=== PATIENT | male | born 1950 | race Hispanic/Latino ===

== ENCOUNTER → 2018-11-13 | Outpatient (CLI) | payer OTHER, MEDICARE ==
[~2018-11-13] VITALS: Ht 193 cm; Wt 107.5 kg
[~2018-11-13] MED LIST: ASPI-555 PO; REGADENOSON 0.4 MG/5 ML PF SYG IVP SCH; TERA10CA4 PO
== END | disposition home or self-care (01) ==
LOC: SHCH 08:14
PROVIDERS: ATTEND Internal Medicine Cardiovascular Disease
DX: I21.19 ST elevation (STEMI) myocardial infarction involving other coronary artery of inferior wall (principal); I25.709 Atherosclerosis of coronary artery bypass graft(s), unspecified, with unspecified angina pectoris
CPT/HCPCS: 78452; 93017; 96374; A9500 ×2; J2785

== ENCOUNTER 2019-06-14 15:32 | Emergency (ER) | payer OTHER, MEDICARE ==
[~2019-06-14] VITALS: Ht 193 cm; Wt 108.9 kg
[~2019-06-14 15:32] MED LIST changes: -REGADENOSON 0.4 MG/5 ML PF SYG IVP SCH
[2019-06-14] MEDS ORDERED: DILTIAZEM HCL 5 MG/ML 10 ML VIAL IV ONE (15:58)
[2019-06-14] MEDS ORDERED: DILTIAZEM 125MG+100 ML NS 125 ML IV SCH (16:15)
[2019-06-14 16:48] LABS: BASOPHILS % (AUTO) 0.5 % (0.0-5.0); EOSINOPHILS % (AUTO) 2.7 % (0.0-8.0); HEMATOCRIT 36.5 % (42-54); LYMPHOCYTES % (AUTO) 21.9 % (21.0-51.0); MEAN CORPUSCULAR HGB CONC 33.7 g/dL (32.0-36.0); MONOCYTES % (AUTO) 9.5 % (3.0-13.0); NEUTROPHILS % (AUTO) 65.1 % (40.0-77.0); PLATELET COUNT (AUTO) 211 K/uL (130-400); RED CELL DISTRIBUTION WIDTH 12.8 % (11.0-15.5); WHITE BLOOD COUNT (AUTO) 6.6 K/uL (4.8-10.8)
[2019-06-14 16:59] LABS: CREATININE 1.3 mg/dL (0.5-1.5); POTASSIUM 4.3 mmol/L (3.5-5.1)
[2019-06-14 17:02] LABS: INR 1.21 (0.85-1.15); PARTIAL THROMBOPLASTIN TIME 57.1 SEC (26.3-35.5); PROTHROMBIN TIME 12.6 SEC (9.6-11.6)
[2019-06-14 17:04] LABS: ALBUMIN 3.9 g/dL (3.5-5.0); BILIRUBIN,TOTAL 0.4 mg/dL (0.2-1.0); TOTAL PROTEIN, SERUM 8.3 g/dL (6.0-8.3)
== END 2019-06-14 19:37 | disposition home or self-care (01) ==
LOC: EDH 15:32
DX: I48.0 Paroxysmal atrial fibrillation (principal); I10 Essential (primary) hypertension; I25.10 Atherosclerotic heart disease of native coronary artery without angina pectoris; Z88.2 Allergy status to sulfonamides
CPT/HCPCS: 36415; 80053; 84484 ×2; 85025; 85610; 85730; 93005 ×2; 96374; 99291; J3490 ×2

== ENCOUNTER 2021-08-15 11:24 | Observation (INO) | payer MEDICARE ==
[~2021-08-15] VITALS: Ht 193 cm; Wt 103.0 kg
[~2021-08-15 11:24] MED LIST changes: -ASPI-555 PO; +ASPI-556 PO
[2021-08-15] MEDS ORDERED: NITROGLYCERIN 0.4 MG SL TAB SL ONE (11:47)
[2021-08-15] MEDS ORDERED: ASPIRIN 81MG CHEW TAB ONE (11:47)
[2021-08-15 11:53] LABS: BASOPHILS % (AUTO) 0.5 % (0.0-5.0); EOSINOPHILS % (AUTO) 3.4 % (0.0-8.0); HEMATOCRIT 30.1 % (42-54); LYMPHOCYTES % (AUTO) 19.6 % (21.0-51.0); MEAN CORPUSCULAR HEMOGLOBIN 30.1 pg (27.0-33.0); MEAN CORPUSCULAR HGB CONC 33.6 g/dL (32.0-36.0); MEAN CORPUSCULAR VOLUME 89.9 fL (79-99); MONOCYTES % (AUTO) 10.2 % (3.0-13.0); NEUTROPHILS % (AUTO) 65.9 % (40.0-77.0); PLATELET COUNT (AUTO) 159 K/uL (130-400); RED BLOOD CELL COUNT(AUTO) 3.35 MIL/uL (4.50-6.20); RED CELL DISTRIBUTION WIDTH 13.3 % (11.0-15.5); WHITE BLOOD COUNT (AUTO) 5.6 K/uL (4.8-10.8)
[2021-08-15] MEDS ORDERED: NITROGLYCERIN 0.4 MG SL TAB SL PRN (12:00)
[2021-08-15 12:02] LABS: CREATININE 1.4 mg/dL (0.5-1.5); POTASSIUM 4.2 mmol/L (3.5-5.1)
[2021-08-15 12:07] LABS: BILIRUBIN,TOTAL 0.7 mg/dL (0.2-1.0)
[2021-08-15 12:11] LABS: B-TYPE NATRIURETIC PEPTIDE 497 pg/mL (0-100)
[2021-08-15] MEDS ORDERED: IOHEXOL 350 MG/ML 100ML INFUS..BTL IV ONE (13:47)
[2021-08-15] MEDS ORDERED: FUROSEMIDE 40MG VIAL IV SCH (14:00)
[2021-08-15] MEDS ORDERED: LACTULOSE 20 GM/30 ML UDCUP PO PRN (15:00)
[2021-08-15] MEDS ORDERED: ONDANSETRON 4MG INJ IVP PRN (15:00)
[2021-08-15] MEDS ORDERED: NITROGLYCERIN PATCH 0.2 MG/HR TD PRN (15:00)
[2021-08-15] MEDS ORDERED: HYDRALAZINE 20MG/ML VIAL IV PRN (15:00)
[2021-08-15] MEDS ORDERED: ACETAMINOPHEN 325 MG TAB PO PRN (15:00)
[2021-08-15] MEDS: HYDRALAZINE 25MG TABLET PO SCH ×2 (15:31→20:45)
[2021-08-15] MEDS: INSULIN HUMULIN R 100 UNIT/ML 3ML SQ SCH ×2 (16:30→21:00)
[2021-08-15] MEDS: IPRATROPIUM/ALBUTEROL SULFATE 3 ML SOLUTION IH SCH ×2 (18:14→23:02)
[2021-08-15 19:59] VITALS: BP 127/89
[2021-08-15] MEDS: METOPROLOL TARTRATE 25 MG TAB PO SCH (20:44)
[2021-08-15] MEDS: SIMVASTATIN 20 MG TABLET PO SCH (20:44)
[2021-08-15 23:08] VITALS: BP 165/92
[2021-08-16] MEDS: IPRATROPIUM/ALBUTEROL SULFATE 3 ML SOLUTION IH SCH ×6 (02:47→22:32)
[2021-08-16 03:16] VITALS: BP 176/87
[2021-08-16 03:17] LABS: BASOPHILS % (AUTO) 0.7 % (0.0-5.0); EOSINOPHILS % (AUTO) 4.4 % (0.0-8.0); HEMATOCRIT 29.7 % (42-54); LYMPHOCYTES % (AUTO) 21.1 % (21.0-51.0); MEAN CORPUSCULAR HEMOGLOBIN 29.7 pg (27.0-33.0); NEUTROPHILS % (AUTO) 63.6 % (40.0-77.0); PLATELET COUNT (AUTO) 162 K/uL (130-400); RED CELL DISTRIBUTION WIDTH 13.3 % (11.0-15.5); WHITE BLOOD COUNT (AUTO) 5.9 K/uL (4.8-10.8)
[2021-08-16 03:39] LABS: CREATININE 1.3 mg/dL (0.5-1.5); MAGNESIUM 2.1 mg/dL (1.80-2.40); PHOSPHORUS 4.5 mg/dL (2.5-4.9); POTASSIUM 3.9 mmol/L (3.5-5.1); THYROID STIMULATING HORMONE 1.05 uIU/mL (0.36-3.74)
[2021-08-16 03:50] LABS: B-TYPE NATRIURETIC PEPTIDE 269 pg/mL (0-100)
[2021-08-16] MEDS ORDERED: TERA10CA4 PO (06:49)
[2021-08-16] MEDS ORDERED: ROSU20TA31 PO (06:49)
[2021-08-16] MEDS ORDERED: METO-409 PO (06:49)
[2021-08-16] MEDS ORDERED: APIX5TAB PO (06:49)
[2021-08-16] MEDS: INSULIN HUMULIN R 100 UNIT/ML 3ML SQ SCH ×3 (06:52→21:00)
[2021-08-16 08:00] VITALS: BP 160/84
[2021-08-16] MEDS ORDERED: ASPIRIN 81MG CHEW TAB PO SCH (09:00)
[2021-08-16] MEDS: PANTOPRAZOLE 40 MG TAB DR PO SCH (09:33)
[2021-08-16] MEDS: HYDRALAZINE 25MG TABLET PO SCH ×3 (09:33→20:09)
[2021-08-16] MEDS: ASPIRIN 81MG CHEW TAB PO SCH (09:34)
[2021-08-16] MEDS: METOPROLOL TARTRATE 25 MG TAB PO SCH ×2 (09:34→20:09)
[2021-08-16] MEDS: ENOXAPARIN SODIUM 30 MG/0.3 ML SQ SCH (09:35)
[2021-08-16] MEDS: NITROGLYCERIN 1GM OINT 1 INCH/1GM TD SCH (09:39)
[2021-08-16] MEDS: AMLODIPINE 5 MG TAB PO SCH (09:39)
[2021-08-16 12:00] VITALS: BP 140/61
[2021-08-16 17:50] VITALS: BP 146/72
[2021-08-16 19:00] VITALS: BP 187/86
[2021-08-16] MEDS: SIMVASTATIN 20 MG TABLET PO SCH (20:09)
[2021-08-16] MEDS: LABETALOL 20MG SYG IV PRN (20:10)
[2021-08-17] VITALS: BP 185/83
[2021-08-17] MEDS: LABETALOL 20MG SYG IV PRN (00:04)
[2021-08-17] MEDS: NITROGLYCERIN 1GM OINT 1 INCH/1GM TD SCH ×3 (00:05→13:05)
[2021-08-17] MEDS: IPRATROPIUM/ALBUTEROL SULFATE 3 ML SOLUTION IH SCH ×2 (01:38→06:31)
[2021-08-17 04:00] VITALS: BP 149/69
[2021-08-17 04:56] LABS: BASOPHILS % (AUTO) 0.5 % (0.0-5.0); EOSINOPHILS % (AUTO) 5.6 % (0.0-8.0); HEMATOCRIT 27.8 % (42-54); MEAN CORPUSCULAR HEMOGLOBIN 29.3 pg (27.0-33.0); MEAN CORPUSCULAR HGB CONC 32.7 g/dL (32.0-36.0); MEAN CORPUSCULAR VOLUME 89.4 fL (79-99); MONOCYTES % (AUTO) 13.2 % (3.0-13.0); NEUTROPHILS % (AUTO) 60.4 % (40.0-77.0); PLATELET COUNT (AUTO) 158 K/uL (130-400); RED BLOOD CELL COUNT(AUTO) 3.11 MIL/uL (4.50-6.20); RED CELL DISTRIBUTION WIDTH 13.6 % (11.0-15.5); WHITE BLOOD COUNT (AUTO) 6.1 K/uL (4.8-10.8)
[2021-08-17 05:10] LABS: ALBUMIN 3.6 g/dL (3.5-5.0); BILIRUBIN,TOTAL 0.6 mg/dL (0.2-1.0); CREATININE 1.4 mg/dL (0.5-1.5); POTASSIUM 3.6 mmol/L (3.5-5.1); TOTAL PROTEIN, SERUM 7.2 g/dL (6.0-8.3)
[2021-08-17] MEDS: INSULIN HUMULIN R 100 UNIT/ML 3ML SQ SCH ×4 (06:42→20:29)
[2021-08-17 07:30] VITALS: BP 178/83
[2021-08-17] MEDS: HYDRALAZINE 25MG TABLET PO SCH ×3 (09:00→21:04)
[2021-08-17] MEDS: METOPROLOL SUCCINATE 50 MG TAB.SR.24H PO SCH (09:00)
[2021-08-17] MEDS: PANTOPRAZOLE 40 MG TAB DR PO SCH ×2 (09:00→13:03)
[2021-08-17] MEDS: ASPIRIN 81MG CHEW TAB PO SCH ×2 (09:00→13:03)
[2021-08-17] MEDS: AMLODIPINE 5 MG TAB PO SCH ×2 (09:00→13:02)
[2021-08-17] MEDS: ENOXAPARIN SODIUM 30 MG/0.3 ML SQ SCH (09:00)
[2021-08-17] MEDS ORDERED: IPRATROPIUM/ALBUTEROL SULFATE 3 ML SOLUTION IH PRN (10:30)
[2021-08-17 11:00] VITALS: BP 163/81
[2021-08-17] MEDS ORDERED: REGADENOSON 0.4 MG/5 ML PF SYG IVP SCH (11:30)
[2021-08-17 16:00] VITALS: BP 169/77
[2021-08-17 20:00] VITALS: BP 168/82
[2021-08-17] MEDS ORDERED: TERAZOSIN 5MG CAP PO SCH (21:00)
[2021-08-17] MEDS: SIMVASTATIN 20 MG TABLET PO SCH (21:04)
[2021-08-17] MEDS ORDERED: CLONIDINE HCL 0.2 MG TABLET PO ONE ×2 (23:24→23:30)
[2021-08-18] VITALS: BP 171/81
[2021-08-18] MEDS: NITROGLYCERIN 1GM OINT 1 INCH/1GM TD SCH (01:48)
[2021-08-18 04:00] VITALS: BP 132/68
[2021-08-18 05:10] LABS: BASOPHILS % (AUTO) 0.7 % (0.0-5.0); EOSINOPHILS % (AUTO) 6.5 % (0.0-8.0); HEMATOCRIT 28.8 % (42-54); LYMPHOCYTES % (AUTO) 22.6 % (21.0-51.0); MEAN CORPUSCULAR HEMOGLOBIN 29.6 pg (27.0-33.0); MEAN CORPUSCULAR HGB CONC 32.6 g/dL (32.0-36.0); MEAN CORPUSCULAR VOLUME 90.6 fL (79-99); MONOCYTES % (AUTO) 13.1 % (3.0-13.0); NEUTROPHILS % (AUTO) 56.7 % (40.0-77.0); PLATELET COUNT (AUTO) 160 K/uL (130-400); RED BLOOD CELL COUNT(AUTO) 3.18 MIL/uL (4.50-6.20); RED CELL DISTRIBUTION WIDTH 13.4 % (11.0-15.5); WHITE BLOOD COUNT (AUTO) 5.7 K/uL (4.8-10.8)
[2021-08-18 05:31] LABS: B-TYPE NATRIURETIC PEPTIDE 150 pg/mL (0-100)
[2021-08-18 05:38] LABS: ALBUMIN 3.6 g/dL (3.5-5.0); BILIRUBIN,TOTAL 0.6 mg/dL (0.2-1.0); CREATININE 1.2 mg/dL (0.5-1.5); TOTAL PROTEIN, SERUM 7.4 g/dL (6.0-8.3)
[2021-08-18] MEDS: INSULIN HUMULIN R 100 UNIT/ML 3ML SQ SCH ×2 (06:00→11:30)
[2021-08-18 07:35] VITALS: BP 143/73
[2021-08-18] MEDS ORDERED: ISOSORBIDE MONO 30MG SR TAB PO SCH (09:00)
[2021-08-18] MEDS ORDERED: HYDRALAZINE 25MG TABLET PO SCH (09:00)
[2021-08-18] MEDS: ENOXAPARIN SODIUM 30 MG/0.3 ML SQ SCH (09:37)
[2021-08-18 11:20] VITALS: BP 104/49
[2021-08-18] MEDS ORDERED: ASPI-1005 PO (13:31)
[2021-08-18] MEDS ORDERED: AMLO5TAB4 PO (13:31)
[2021-08-18] MEDS ORDERED: HYDR25 PO (13:31)
[2021-08-18] MEDS ORDERED: TERAZOSIN 5MG CAP PO SCH (21:00)
== END 2021-08-18 14:46 | disposition home or self-care (01) ==
LOC: EDH 11:24 → EDHIP 14:59 → UNDOADMOB 14:59 → 3DH 19:00 → EDHIP 19:00
PROVIDERS: ADMIT Internal Medicine; ATTEND Internal Medicine
DX: R07.89 Other chest pain (principal); Z20.822 Contact with and (suspected) exposure to COVID-19; I16.0 Hypertensive urgency; I48.20 Chronic atrial fibrillation, unspecified; I48.0 Paroxysmal atrial fibrillation; I25.119 Atherosclerotic heart disease of native coronary artery with unspecified angina pectoris; E78.5 Hyperlipidemia, unspecified; R79.89 Other specified abnormal findings of blood chemistry; I13.0 Hypertensive heart and chronic kidney disease with heart failure and stage 1 through stage 4 chronic kidney disease, or unspecified chronic kidney disease; E11.22 Type 2 diabetes mellitus with diabetic chronic kidney disease; I50.30 Unspecified diastolic (congestive) heart failure; N18.30 Chronic kidney disease, stage 3 unspecified; D63.1 Anemia in chronic kidney disease; N52.9 Male erectile dysfunction, unspecified; E78.00 Pure hypercholesterolemia, unspecified; Z95.1 Presence of aortocoronary bypass graft; Z86.79 Personal history of other diseases of the circulatory system; Z79.01 Long term (current) use of anticoagulants; Z79.82 Long term (current) use of aspirin; Z79.899 Other long term (current) drug therapy; Z88.8 Allergy status to other drugs, medicaments and biological substances
CPT/HCPCS: 36415 ×4; 71045 ×2; 71275; 78452; 80048; 80053 ×3; 82550 ×3; 82948 ×11; 83735; 83874 ×3; 83880 ×3; 84100; 84443; 84484 ×5; 85025 ×4; 85378; 87635; 87804 ×2; 93005 ×2; 93017; 93306; 93356; 93970; 94640 ×8; 94664; 96372 ×2; 96374; 96375 ×2; 96376; 99291; A9500 ×2; C9803; G0378 ×66; J0360; J1650 ×3; J1940; J2785; Q9967

== ENCOUNTER → 2021-11-07 | Outpatient (CLI) | payer MEDICARE ==
[~2021-11-07] MED LIST changes: +AMLO5TAB4 PO; +APIX5TAB PO; +ASPI-1005 PO; -ASPI-556 PO; +HYDR25 PO; +METO-409 PO; +ROSU20TA31 PO
[2021-11-07 12:33] LABS: CREATININE 1.4 mg/dL (0.5-1.5); POTASSIUM 4.7 mmol/L (3.5-5.1)
== END | disposition home or self-care (01) ==
LOC: LAB 10:58
PROVIDERS: ATTEND Physician Assistant
DX: I25.10 Atherosclerotic heart disease of native coronary artery without angina pectoris (principal)
CPT/HCPCS: 36415; 80048

== ENCOUNTER → 2022-08-02 | Outpatient (CLI) | payer MEDICARE ==
[2022-08-02 13:05] LABS: ALBUMIN 4.2 g/dL (3.5-5.0); CREATININE 1.4 mg/dL (0.5-1.5); POTASSIUM 4.5 mmol/L (3.5-5.1); T4 (THYROXINE) 7.3 ug/dL (4.7-13.3); THYROID STIMULATING HORMONE 0.88 uIU/mL (0.36-3.74); TOTAL PROTEIN, SERUM 8.2 g/dL (6.0-8.3)
== END | disposition home or self-care (01) ==
LOC: LAB 09:07
PROVIDERS: ATTEND Physician Assistant
DX: I25.10 Atherosclerotic heart disease of native coronary artery without angina pectoris (principal); I10 Essential (primary) hypertension
CPT/HCPCS: 36415; 80053; 80061; 84436; 84443; 84479

== ENCOUNTER → 2023-11-08 | Outpatient (CLI) | payer MEDICARE ==
[~2023-11-08] MED LIST changes: +GADOTERATE MEGLUMINE 10 MMOL/20 ML VIAL IV ONE; -ROSU20TA31 PO; +ROSU20TA73 PO
== END | disposition home or self-care (01) ==
LOC: RAH 08:19
PROVIDERS: ATTEND Otolaryngology
DX: H90.3 Sensorineural hearing loss, bilateral (principal); R90.82 White matter disease, unspecified
CPT/HCPCS: 70553; A9575

== ENCOUNTER → 2024-09-03 | Outpatient (CLI) | payer MEDICARE ==
[~2024-09-03] MED LIST changes: -GADOTERATE MEGLUMINE 10 MMOL/20 ML VIAL IV ONE; -ROSU20TA73 PO; +ROSU20TA98 PO
== END | disposition home or self-care (01) ==
LOC: SHCH 08:32
PROVIDERS: ATTEND Internal Medicine Cardiovascular Disease
DX: I08.3 Combined rheumatic disorders of mitral, aortic and tricuspid valves (principal); I70.203 Unspecified atherosclerosis of native arteries of extremities, bilateral legs; I87.2 Venous insufficiency (chronic) (peripheral); I87.1 Compression of vein; I48.19 Other persistent atrial fibrillation
CPT/HCPCS: 93306; 93925; 93970